=== PATIENT | male | born 1995 | race African-American/Black ===

== ENCOUNTER 2021-08-25 09:41 | Emergency (ER) | payer OTHER, SELFPAY ==
--- NOTE | ~2021-08-25 | XR_ITS ---
EXAMINATION: XR finger 1st RT min 2V INDICATION: Right first finger pain TECHNIQUE: Three views of the right first finger are obtained. COMPARISON: None available FINDINGS: There is no fracture, dislocation, or subluxation. The bones, soft tissues, and joint space s are normal. IMPRESSION: 1. No acute osseous abnormality. Reviewed, dictated and finalized at location A. 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
[2021-08-25 10:00] VITALS: BP 118/75; PULSE 64; RESP 16; TEMP 36.6; O2SAT 100
--- NOTE | 2021-08-25 10:19 | ED.UPPEXIN ---
HPI - Extremity Injury (Upper) General Chief Complaint: Extremity Injury, Upper Stated Complaint: right thumb pain Source: patient and RN notes reviewed Mode of arrival: ambulatory History of Present Illness HPI narrative: This is a 31-year-old male who presented to urgent care with complaints of right thumb pain status post trauma. According to patient yesterday he slammed his in the car door. Patient notes that yesterday his thumb was swollen he was unable to move his thumb. He did not do anything at home to relieve his symptoms. No neurovascular deficiency noted, pedal pulses present, sensations present, no compartmental syndrome noted, SOB, CP, palpitation, extremity numbness, lightheadedness, dizziness, constipation, diarrhea, chills, or fever. Related Data Allergies Allergy/AdvReac Type Severity Reaction Status Date / Time No Known Allergies Allergy Verified 08/25/21 09:56 Review of Systems Review of Systems: A 14 organ system Review of Systems was performed and pertinent positives included in the HPI, otherwise remaining ROS is negative. [facility] Family History Family History (Updated 08/25/21 @ 10:21 by LUPILLO Araujo-Adina) Other Family history non-contributory Exam Narrative: GENERAL: This is a well-nourished, well-developed patient, in no apparent distress. HEAD: normocephalic, atraumatic. EYES: PERRL. Sclera clear/white. Vision is grossly intact. EARS: External ears normal, auditory canals clear and without drainage, TMs normal without perforation. Hearing grossly intact. NOSE: External nose normal with no obvious nasal discharge, nares without redness, no rhinorrhea. THROAT: Mucous membranes moist, posterior pharynx clear. NECK: Neck supple, non-tender without lymphadenopathy, masses or thyromegaly. CARDIOVASCULAR: Regular rate and rhythm without murmurs, gallops, or rubs. RESPIRATORY: Clear to auscultation. Breath sounds equal bilaterally. No wheezes, rales, or rhonchi. GASTROINTESTINAL: Abdomen soft, non-tender, nondistended. Bowel sounds are active. No hepato-splenomegaly, or palpable masses. No guarding. SKIN: warm, intact with no suspicious lesions or rash, good texture and turgor. NEURO: awake, alert, and oriented to person, place and time. There were no obvious focal neurologic abnormalities. Steady gait EXTREMITIES: Limited range of motion to the right arm due to pain. Lightly edema. No calf tenderness. Negative Homans sign bilaterally. No neurovascular deficiency noted ,no compartment syndrome ,noted sensations positive, pulses palpable, BACK: Nontender without deformity or crepitance. No flank tenderness. Course Course Emergency Course: Patient will discharge home with his right been splinted in ibuprofen for her pain relief Vital Signs Vital signs: Vital Signs Temperature 97.9 F 08/25/21 10:00 Pulse Rate 64 08/25/21 10:00 Respiratory Rate 16 08/25/21 10:00 Blood Pressure 118/75 08/25/21 10:00 Pulse Oximetry 100 08/25/21 10:00 Temperature 97.9 F 08/25/21 10:00 Pulse Rate 64 08/25/21 10:00 Respiratory Rate 16 08/25/21 10:00 Blood Pressure 118/75 08/25/21 10:00 Pulse Oximetry 100 08/25/21 10:00 MDM - Extremity Injury (Upper) Differential Diagnosis Differential diagnosis: Likely finger sprain, dislocation of finger and other (Dislocated finger) Imaging Data Attestation: I personally reviewed and interpreted this imaging study as follows: Radiologist's impression: Image does not indicate any fracture dislocation Discharge Plan Discharge Clinical Impression: Finger injury Qualifiers: Encounter type: initial encounter Laterality: right Qualified Code(s): S69.91XA - Unspecified injury of right wrist, hand and finger(s), initial encounter Patient Disposition: Home, Self-Care Condition: Stable Instructions: Antibiotic Form, Crush Injury (ED) Additional Instructions: Ice to the area 20-30 minutes 4-6 times a day Elevate above heart Elastic
== END 2021-08-25 11:07 | disposition home or self-care (01) ==
PROVIDERS: Emergency Provider Nurse Practitioner
DX: S69.91XA Unspecified injury of right wrist, hand and finger(s), initial encounter (principal); W23.0XXA Caught, crushed, jammed, or pinched between moving objects, initial encounter
CPT/HCPCS: 29130; 73140; 99203; G0463

== ENCOUNTER 2021-09-21 13:10 | Emergency (ER) | payer OTHER, SELFPAY ==
[2021-09-21 13:54] VITALS: BP 126/73; PULSE 70; RESP 16; TEMP 36.7; O2SAT 100
--- NOTE | 2021-09-21 15:20 | PC.NURSE ---
pa evaluating pt in triage bay
--- NOTE | 2021-09-21 15:20 | ED.GENADULT ---
HPI - General Adult General Chief complaint: Upper Respiratory Infection <Aida Moreno PA-C - Last Filed: 09/21/21 20:01> Stated complaint: st/hester/cough/wants covid tests <Aida Moreno PA-C - Last Filed: 09/21/21 20:01> Time Seen by Provider: 09/21/21 15:19 <RACHELE Luna Last Filed: 09/21/21 20:01> Source: patient <Aida Moreno PA-C - Last Filed: 09/21/21 20:01> Mode of arrival: ambulatory <RACHELE Luna Last Filed: 09/21/21 20:01> Limitations: no limitations <RACHELE Luna Last Filed: 09/21/21 20:01> History of Present Illness HPI narrative: Patient is a 26-year-old male presenting with chief complaint of 4 days of sore throat, headache, and runny nose. Patient is vaccinated- last dose nov. Patient denies chest pain, sob, or vomiting. Patient had familial exposure to covid. Patient denies any other emergent symptoms. <RACHELE Luna Last Filed: 09/21/21 20:01> Related Data Allergies/adverse reactions: Allergies Allergy/AdvReac Type Severity Reaction Status Date / Time No Known Allergies Allergy Verified 08/25/21 09:56 <RACHELE Luna Last Filed: 09/21/21 20:01> Review of Systems Review of Systems: CONSTITUTIONAL: Denies fever, chills, or sweats. EYES: Denies visual changes, redness, or discharge. ENT: Reports rhinorrhea, congestion, sore throat, Denies otalgia. CARDIOVASCULAR: Denies chest pain, palpitations, or edema. RESPIRATORY: Reports cough Denies dyspnea. GASTROINTESTINAL: Denies abdominal pain, nausea, vomiting, or diarrhea. GENITOURINARY: Denies dysuria or hematuria. SKIN: Denies rash or itching. MUSCULOSKELETAL: Denies back pain, myalgia, or joint pain NEUROLOGIC: Denies headache, numbness, dizziness, or weakness. PSYCHIATRIC: Denies anxiety or depression. <RACHELE Luna Last Filed: 09/21/21 20:01> [facility] Family History Family History: Family History (Updated 08/25/21 @ 10:21 by SAVANNAH Araujo) Other Family history non-contributory <Aida Moreno PA-C - Last Filed: 09/21/21 20:01> Exam Narrative: GENERAL: Well-appearing, well-nourished. HEAD: Normocephalic, atraumatic. EYES: PERRLA and EOMI. CHEST: Clear to auscultation. No respiratory distress. No wheezes rales or rhonchi HEART: Regular rate and rhythm. SKIN: Warm, dry, no rash. NEURO: Alert and oriented x3. PSYCH: Normal mood and affect. <Aida Moreno PA-C - Last Filed: 09/21/21 20:01> Course Vital Signs Vital signs: Vital Signs Temperature 98.1 F 09/21/21 13:54 Pulse Rate 70 09/21/21 13:54 Respiratory Rate 16 09/21/21 13:54 Blood Pressure 126/73 09/21/21 13:54 Pulse Oximetry 100 09/21/21 13:54 Temperature 98.1 F 09/21/21 13:54 Pulse Rate 70 09/21/21 13:54 Respiratory Rate 16 09/21/21 13:54 Blood Pressure 126/73 09/21/21 13:54 Pulse Oximetry 100 09/21/21 13:54 <Aida Moreno PA-C - Last Filed: 09/21/21 20:01> Medical Decision Making MDM Narrative Medical decision making narrative: Patient declines influenza test. Patient vitals are stable. Patient not hypoxic or toxic. Patient tested for Covid and given quarantine instructions and return ER instructions. <Aida Moreno PA-C - Last Filed: 09/21/21 20:01> Differential Diagnosis Differential Diagnosis: flu, covid, strep, pneumonia <Aida Moreno PA-C - Last Filed: 09/21/21 20:01> Vital Signs Vital Signs: Vital Signs Temperature 98.1 F 09/21/21 13:54 Pulse Rate 70 09/21/21 13:54 Respiratory Rate 16 09/21/21 13:54 Blood Pressure 126/73 09/21/21 13:54 Pulse Oximetry 100 09/21/21 13:54 Temperature 98.1 F 09/21/21 13:54 Pulse Rate 70 09/21/21 13:54 Respiratory Rate 16 09/21/21 13:54 Blood Pressure 126/73 09/21/21 13:54 Pulse Oximetry 100 09/21/21 13:54 <Aida Moreno PA-C - Last Filed: 09/21/21 20:01> Lab Data Labs: Lab
[2021-09-22 14:36] LABS: SARS-CoV-2 RNA PCR Positive
== END 2021-09-21 15:51 | disposition home or self-care (01) ==
LOC: ANHED 15:40
PROVIDERS: Physician Assistant; Emergency Provider General Practice
DX: U07.1 COVID-19 (principal)
CPT/HCPCS: 99283; C9803; U0003; U0005